=== PATIENT | female | born 1985 | race Two or more races ===

== ENCOUNTER 2017-08-09 10:20 | Emergency (ER) | payer OTHER ==
[2017-08-09] MEDS ORDERED: NS 0.9% 1000 ML* 1,000 ML IV ONE (11:03)
[2017-08-09 11:42] LABS: ABS Basophils 0 10^3/ul (0-0.2); ABS Eosinophils 0.9 10^3/ul (0-0.6); ABS Lymphocytes 1.5 10^3/ul (1.0-4.8); ABS Monocytes 0.3 10^3/ul (0-0.8); ABS Neutrophils 3.6 10^3/ul (1.5-7.7); ABS Nucleated RBC 0 10^3/ul; Eosinophil % 13.9 % (0-6); Hematocrit 38 % (35-47); Hemoglobin 12.8 g/dl (12.0-16.0); Mean Corpuscular HGB Conc 34 g/dl (31-36); Mean Corpuscular Hemoglobin 29 pg (27-31); Mean Corpuscular Volume 86 fL (80-97); Mean Platelet Volume 8.6 um3 (7.4-10.4); Nucleated Red Blood Cells % 0.1; Platelet Count 171 10^3/ul (150-450); Red Cell Distribution Width 13 % (10.5-15); White Blood Count 6.3 10^3/ul (3.5-10.8)
--- NOTE | 2017-08-09 12:07 | RAD ---
INDICATION: Cholecystitis COMPARISON: None TECHNIQUE: Longitudinal and transverse scans of the right upper quadrant were obtained. Doppler interrogation of the hepatic and portal venous system was performed. FINDINGS: Liver: The liver is normal in size and echogenicity. There are no focal masses. The liver measures 15 cm in cephalocaudal dimension. Vessels: There is normal hepatic and portal venous flow. Bile ducts: There is no evidence of intrahepatic or extrahepatic ductal dilatation. The common duct measures 0.2 cm. Gallbladder: The gallbladder is partially contracted. The patient ate less than 3 hours prior to imaging. There is no convincing evidence of cholelithiasis, thickening of the gallbladder wall, or pericholecystic fluid. Pancreas: The visualized pancreas appears normal Right kidney: The right kidney is normal in size and echogenicity. There are no masses or calculi. There is no evidence of hydronephrosis. The right kidney measures 10.8 x 3.6 x 4.0 cm. IVC and aorta: The aorta and superior vena cava appear normal. Fluid: There is no ascites. Other: None. IMPRESSION: PARTIALLY CONTRACTED GALLBLADDER, OTHERWISE NEGATIVE
[2017-08-09 12:09] LABS: EGFR Non-African American 88.8 (>60)
[2017-08-09 12:24] LABS: INR 1.02 (0.77-1.02)
[2017-08-09] MEDS ORDERED: Iohexol 300* (CONTRAST) 10 ML SDV IV ONE (12:27)
[2017-08-09 13:06] LABS: Urine Appearance Clear; Urine Blood Negative (Negative); Urine Color Colorless; Urine Ketones Negative (Negative); Urine Protein Negative (Negative); Urine Specific Gravity 1.003 (1.010-1.030); Urine Urobilinogen Negative (Negative)
--- NOTE | 2017-08-09 13:17 | RAD ---
HISTORY: Abdominal pain, epigastric pain COMPARISONS: None VIEWS: 4: Frontal dual-energy and lateral views of the chest. FINDINGS: CARDIOMEDIASTINAL SILHOUETTE: The cardiomediastinal silhouette is normal. VIKTORIA: The viktoria are normal. PLEURA: The costophrenic angles are sharp. No pleural abnormalities are noted. LUNG PARENCHYMA: The lungs are clear. ABDOMEN: The upper abdomen is clear. There is no subphrenic gas. BONES AND SOFT TISSUES: There is mild scoliotic curvature of the spine OTHER: None. IMPRESSION: NO ACTIVE CARDIOPULMONARY DISEASE.
[2017-08-09] MEDS ORDERED: Diltiazem IV* 5 MG/ML 5 ML VIAL (for loading dose/IV Push) (25 MG) ONE (14:48)
--- NOTE | 2017-08-09 14:57 | RAD ---
Indication: Abdominal tenderness. Contrast: Administered 84.0 ml of OMNIPAQUE 300 mg/ml CT of the abdomen and pelvis was performed after oral and IV contrast administration. Coronal and sagittal reconstructed images were obtained. The lung bases demonstrate no pleural fluid, nodules or masses. Heart is of normal size without evidence of pericardial effusion. Liver is normal in size. No focal lesions or intrahepatic ductal dilatation is noted. The spleen is normal in size. Pancreas demonstrates no mass or pancreatic ductal dilatation. The gallbladder demonstrates no calcified gallstones, pericholecystic fluid or wall thickening. It is partially contracted. The common duct is not dilated. No adrenal lesions are noted. The kidneys demonstrate symmetric nephrograms without focal lesions. No retroperitoneal lymphadenopathy is noted. CT of the pelvis demonstrates appendix to be visualized and appears to be air-filled. Small bowel demonstrates no abnormal dilatation. Urinary bladder is unremarkable. Collapsing right ovarian cyst may represent hemorrhagic cyst. There may be trace amount of free fluid in the cul-de-sac. No hernia is noted. No other dilated loops of bowel are noted. IMPRESSION: Normal appendix. No obstructive uropathy is noted. There is likely hemorrhagic cyst in the right ovary with a small amount of free fluid in the cul-de-sac.
[2017-08-09 15:43] VITALS: BP 95/50
--- NOTE | 2017-08-09 18:52 | ED ---
Malina Hanks Julia, scribed for Domingo Monsivais on 08/09/17 at 1106 . Abdominal Pain/Female - HPI Summary HPI Summary: This patient is a 31 year old F presenting to [facility] accompanied by male loom blower with a chief complaint of left sided abdominal pain and mid back pain for the past week. Rates pain as moderate. She additionally reports bright red blood per rectum. She denies diarrhea. Reports a hx of constipation. - History of Current Complaint Chief Complaint: EDAbdPain Stated Complaint: ABD PAIN Time Seen by Provider: 08/09/17 10:56 Hx Obtained From: Patient Onset/Duration: Lasting Weeks Timing: Constant Severity Currently: Moderate Pain Intensity: 6 Pain Scale Used: 0-10 Numeric Location: Other - left Alleviating Factor(s): Nothing Associated Signs and Symptoms: Positive: Back Pain, Constipation, Blood in Stool Allergies/Adverse Reactions: Allergies Allergy/AdvReac Type Severity Reaction Status Date / Time No Known Allergies Allergy Verified 08/09/17 10:53 Home Medications: Home Medications Docusate CAP* [Colace Cap*] 100 mg PO DAILY PRN 08/09/17 [History Confirmed ] PMH/Surg Hx/FS Hx/Imm Hx GI History: Reports: Other GI Disorders - constipation EENT History: Denies: Hx Deafness Infectious Disease History: No Infectious Disease History: Denies: Traveled Outside the [place] in Last 30 Days - Family History Known Family History: Positive: Hypertension - Social History Alcohol Use: None Substance Use Type: Reports: None Smoking Status (MU): Never Smoked Tobacco Review of Systems Negative: Fever Gastrointestinal: Other - rectal bleeding Positive: Abdominal Pain. Negative: Diarrhea All Other Systems Reviewed And Are Negative: Yes Physical Exam - Summary Physical Exam Summary: Appearance: Well appearing, no pain distress Skin: warm, dry, reflects adequate perfusion Head/face: normal Eyes: EOMI, ROMÁN ENT: normal Neck: supple, non-tender Respiratory: CTA, breath sounds present Cardiovascular: RRR, pulses symmetrical Abdomen: diffuse tenderness, soft Bowel: present Musculoskeletal: normal, strength/ROM intact Neuro: normal, sensory motor intact, A&Ox3 Triage Information Reviewed: Yes Vital Signs On Initial Exam: Initial Vitals Temp Pulse Resp BP Pulse Ox 98.7 F 97 17 124/70 100 08/09/17 10:46 08/09/17 10:46 08/09/17 10:46 08/09/17 10:46 08/09/17 10:46 Vital Signs Reviewed: Yes Diagnostics - Vital Signs Vital Signs Temp Pulse Resp BP Pulse Ox 08/09/17 10:46 98.7 F 97 17 124/70 100 - Laboratory Lab Results: Lab Results 08/09/17 08/09/17 08/09/17 Range/Units 11:28 11:28 11:28 WBC 6.3 (3.5-10.8) 10^3/ul RBC 4.40 (4.0-5.4) 10^6/ul Hgb 12.8 (12.0-16.0) g/dl Hct 38 (35-47) % MCV 86 (80-97) fL MCH 29 (27-31) pg MCHC 34 (31-36) g/dl RDW 13 (10.5-15) % Plt Count 171 (150-450) 10^3/ul MPV 8.6 (7.4-10.4) um3 Neut % (Auto) 56.7 (38-83) % Lymph % (Auto) 24.0 L (25-47) % Moore % (Auto) 5.0 (0-7) % Eos % (Auto) 13.9 H (0-6) % Baso % (Auto) 0.4 (0-2) % Absolute Neuts (auto) 3.6 (1.5-7.7) 10^3/ul Absolute Lymphs (auto) 1.5 (1.0-4.8) 10^3/ul Absolute Monos (auto) 0.3 (0-0.8) 10^3/ul Absolute Eos (auto) 0.9 H (0-0.6) 10^3/ul Absolute Basos (auto) 0 (0-0.2) 10^3/ul Absolute Nucleated RBC 0 10^3/ul Nucleated RBC % 0.1 INR (Anticoag Therapy) (0.77-1.02) APTT (26.0-36.3) seconds Sodium 139 (139-145) mmol/L Potassium 4.2 (3.5-5.0) mmol/L Chloride 108 (101-111) mmol/L Carbon Dioxide 26 (22-32) mmol/L Anion Gap 5 (2-11) mmol/L BUN 10 (6-24) mg/dL Creatinine 0.76 (0.51-0.95) mg/dL Est GFR ( Amer) 114.2 (>60) Est GFR (Non-Af Amer) 88.8 (>60) BUN/Creatinine Ratio 13.2 (8-20) Glucose 120 H (70-100) mg/dL Lactic Acid 1.1 (0.5-2.0) mmol/L Calcium 9.3 (8.6-10.3) mg/dL Total Bilirubin 0.40 (0.2-1.0) mg/dL AST 14 (13-39) U/L ALT 11 (7-52) U/L Alkaline Phosphatase 58 (34-104) U/L Troponin I 0.00 (<0.04) ng/mL Total Protein 6.7 (6.4-8.9) g/dL Albumin 4.1 (3.2-5.2) g/dL Globulin 2.6 (2-4) g/dL Albumin/Globulin Ratio 1.6 (1-3) Lipase 30 (11.0-82.0) U/L Beta HCG, Quant < 0.60 mIU/mL Urine Color Urine Appearance Urine pH (5-9) Ur Specific [place] (1.010-1.030) Urine Protein (Negative) Urine Ketones (Negative) Urine Blood (Negative) Urine Nitrate (Negative) Urine Bilirubin (Negative) Urine Urobilinogen (Negative) Ur Leukocyte Esterase (Negative) Urine Glucose (Negative) 08/09/17 08/09/17 Range/Units 12:00 12:39 WBC (3.5-10.8) 10^3/ul RBC (4.0-5.4) 10^6/ul Hgb (12.0-16.0) g/dl Hct (35-47) % MCV (80-97) fL MCH (27-31) pg MCHC (31-36) g/dl RDW (10.5-15) % Plt Count (150-450) 10^3/ul MPV (7.4-10.4) um3 Neut % (Auto) (38-83) % Lymph % (Auto) (25-47) % Moore % (Auto) (0-7) % Eos % (Auto) (0-6) % Baso % (Auto) (0-2) % Absolute Neuts (auto) (1.5-7.7) 10^3/ul Absolute Lymphs (auto) (1.0-4.8) 10^3/ul Absolute Monos (auto) (0-0.8) 10^3/ul Absolute Eos (auto) (0-0.6) 10^3/ul Absolute Basos (auto) (0-0.2) 10^3/ul Absolute Nucleated RBC 10^3/ul Nucleated RBC % INR (Anticoag Therapy) 1.02 (0.77-1.02) APTT 34.7 (26.0-36.3) seconds Sodium (139-145) mmol/L Potassium (3.5-5.0) mmol/L Chloride (101-111) mmol/L Carbon Dioxide (22-32) mmol/L Anion Gap (2-11) mmol/L BUN (6-24) mg/dL Creatinine (0.51-0.95) mg/dL Est GFR ( Amer) (>60) Est GFR (Non-Af Amer) (>60) BUN/Creatinine Ratio (8-20) Glucose (70-100) mg/dL Lactic Acid (0.5-2.0) mmol/L Calcium (8.6-10.3) mg/dL Total Bilirubin (0.2-1.0) mg/dL AST (13-39) U/L ALT (7-52) U/L Alkaline Phosphatase (34-104) U/L Troponin I (<0.04) ng/mL Total Protein (6.4-8.9) g/dL Albumin (3.2-5.2) g/dL Globulin (2-4) g/dL Albumin/Globulin Ratio (1-3) Lipase (11.0-82.0) U/L Beta HCG, Quant mIU/mL Urine Color Colorless Urine Appearance Clear Urine pH 8.0 (5-9) Ur Specific [place] 1.003 L (1.010-1.030) Urine Protein Negative (Negative) Urine Ketones Negative (Negative) Urine Blood Negative (Negative) Urine Nitrate Negative (Negative) Urine Bilirubin Negative (Negative) Urine Urobilinogen Negative (Negative) Ur Leukocyte Esterase Negative (Negative) Urine Glucose Negative (Negative) Result Diagrams: 08/09/17 11:28 08/09/17 11:28 Lab Statement: Any lab studies that have been ordered have been reviewed, and results considered in the medical decision making process. - Radiology CXR Radiology Interpretation Completed By: Radiologist - NO ACTIVE CARDIOPULMONARY DISEASE. ED Physician has reviewed this report. - CT A/P CT CT Interpretation Completed By: Radiologist - Normal appendix. No obstructive uropathy is noted. There is likely hemorrhagic cyst in the right ovary with a small amount of free fluid in the cul-de-sac. ED Physician has reviewed this report. - EKG 12:05 Cardiac Rate: NL EKG Rhythm: Sinus Rhythm - 69 BPM EKG Interpretation: no acute changes - Additional Comments Diagnostic Additional Comments: A Gallbladder US reveals, as per radiologist: PARTIALLY CONTRACTED GALLBLADDER, OTHERWISE NEGATIVE. ED Physician has reviewed this report. Abdominal Pain Fem Course/Dx - Course Course Of Treatment: 31 year old F [facility] accompanied by male loom blower with a chief complaint of left sided abdominal pain and mid back pain for the past week. Rports hx of constipation. An EKG, CXR, A/P CT, and Gallbladder US reveal no acute findings. Bloodwork and UA is unremarkable. Patient is given IV fluids and Diltiazem. Patient is informed of results and is discharged with a prescription for Protonix. - Diagnoses Differential Diagnosis: Positive: Appendicitis, Diverticulitis, Pancreatitis, , Renal Colic Provider Diagnoses: Nonspecific abdominal pain Discharge - Sign-Out/Discharge Documenting (check all that apply): Discharge/Admit/Transfer - Discharge Plan Condition: Stable Disposition: HOME Prescriptions: Pantoprazole TAB (NF) [Protonix TAB (NF)] 40 mg PO DAILY #30 tab Patient Education Materials: Acute Abdominal Pain (ED) Referrals: [facility] PHYSICIAN REFERRAL [Outside] - 3 Days (Contact the Physician referral center to set up a primary care physician. ) - Billing Disposition and Condition Condition: STABLE Disposition: HOME The documentation as recorded by the Malina farooq Julia accurately reflects the service I personally performed and the decisions made by Loi echavarria Emmanuel.
== END 2017-08-09 15:46 | disposition home or self-care (01) ==
LOC: ED 10:20
DX: R10.84 Generalized abdominal pain (principal); M54.9 Dorsalgia, unspecified; K62.5 Hemorrhage of anus and rectum; K59.00 Constipation, unspecified; K82.8 Other specified diseases of gallbladder
CPT/HCPCS: 36415; 71046; 74177; 76705; 80053; 81003; 83605; 83690; 84484; 84702; 85025; 85610; 85730; 93005; 96360; 96361; 99283; Q9967

== ENCOUNTER 2017-08-18 01:33 | Emergency (ER) | payer OTHER ==
[2017-08-18] MEDS ORDERED: NS 0.9% 1000 ML* 1,000 ML IV ONE (02:03)
[2017-08-18] MEDS ORDERED: Pantoprazole IV* 40 MG IV ONE (02:03)
[2017-08-18] MEDS ORDERED: Ketorolac INJ* 30 MG/ML 1 ML VIAL IV ONE (02:03)
[2017-08-18] MEDS ORDERED: Metoclopramide IV* 5 MG/ML 2 ML VIAL IV ONE (02:03)
[2017-08-18 02:27] LABS: ABS Basophils 0.1 10^3/ul (0-0.2); ABS Eosinophils 0.4 10^3/ul (0-0.6); ABS Lymphocytes 1.7 10^3/ul (1.0-4.8); ABS Monocytes 0.4 10^3/ul (0-0.8); ABS Neutrophils 4.9 10^3/ul (1.5-7.7); ABS Nucleated RBC 0 10^3/ul; Eosinophil % 5.7 % (0-6); Hematocrit 35 % (35-47); Lymphocyte % 22.6 % (25-47); Mean Corpuscular HGB Conc 34 g/dl (31-36); Mean Corpuscular Hemoglobin 29 pg (27-31); Mean Corpuscular Volume 86 fL (80-97); Mean Platelet Volume 8.5 um3 (7.4-10.4); Nucleated Red Blood Cells % 0.1; Platelet Count 166 10^3/ul (150-450); Red Blood Count 4.09 10^6/ul (4.0-5.4); Red Cell Distribution Width 13 % (10.5-15); White Blood Count 7.4 10^3/ul (3.5-10.8)
[2017-08-18 02:44] LABS: EGFR Non-African American 79.1 (>60)
[2017-08-18 03:25] VITALS: BP 119/63
--- NOTE | 2017-08-18 03:29 | ED ---
Ivan Hanks Angela, scribed for Nemo Joyner MD on 08/18/17 at 0206 . Abdominal Pain/Female - HPI Summary HPI Summary: This pt is a 31 y/o female [facility] c/o abdominal pain since 21:00 last night. Pt additionally reports nausea, vomiting, diarrhea. Pt states she also has pain in the mid back. She denies fever, chills. Pt denies any past abdominal surgeries. PMHx significant for constipation. - History of Current Complaint Chief Complaint: EDAbdPain Stated Complaint: ABD PAIN Time Seen by Provider: 08/18/17 01:59 Hx Obtained From: Patient Onset/Duration: Lasting Hours, Still Present Timing: Hours Severity Currently: Moderate Pain Intensity: 6 Pain Scale Used: 0-10 Numeric Location: Diffuse Radiates: No Aggravating Factor(s): Nothing Alleviating Factor(s): Nothing Associated Signs and Symptoms: Positive: Back Pain, Nausea, Vomiting, Diarrhea. Negative: Fever Allergies/Adverse Reactions: Allergies Allergy/AdvReac Type Severity Reaction Status Date / Time No Known Allergies Allergy Verified 08/09/17 10:53 PMH/Surg Hx/FS Hx/Imm Hx Endocrine/Hematology History: Denies: Hx Diabetes Cardiovascular History: Denies: Hx Hypertension GI History: Reports: Other GI Disorders - constipation Sensory History: Denies: Hx Deafness Infectious Disease History: No Infectious Disease History: Reports: Traveled Outside the [place] in Last 30 Days - Family History Known Family History: Positive: Hypertension - Social History Alcohol Use: None Substance Use Type: Reports: None Smoking Status (MU): Never Smoked Tobacco Review of Systems Negative: Fever, Chills Eyes: Negative ENT: Negative Positive: Abdominal Pain, Vomiting, Diarrhea, Nausea Skin: Negative Neurological: Negative All Other Systems Reviewed And Are Negative: Yes Physical Exam - Summary Physical Exam Summary: VITAL SIGNS: Reviewed. GENERAL: Patient is a well-developed and nourished female who is lying comfortable in the stretcher. Patient is not in any acute respiratory distress. HEAD AND FACE: No signs of trauma. No ecchymosis, hematomas or skull depressions. No sinus tenderness. EYES: PERRLA, EOMI x 2, No injected conjunctiva, no nystagmus. EARS: Hearing grossly intact. Ear canals and tympanic membranes are within normal limits. MOUTH: Oropharynx within normal limits. NECK: Supple, trachea is midline, no adenopathy, no JVD, no carotid bruit, no c- spine tenderness, neck with full ROM. CHEST: Symmetric, no tenderness at palpation LUNGS: Clear to auscultation bilaterally. No wheezing or crackles. CVS: Regular rate and rhythm, S1 and S2 present, no murmurs or gallops appreciated. ABDOMEN: Soft, non-tender. No signs of distention. No rebound no guarding, and no masses palpated. Bowel sounds are normal. EXTREMITIES: FROM in all major joints, no edema, no cyanosis or clubbing. NEURO: Alert and oriented x 3. No acute neurological deficits. Speech is normal and follows commands. SKIN: Dry and warm Triage Information Reviewed: Yes Vital Signs On Initial Exam: Initial Vitals Temp Pulse Resp BP Pulse Ox 98.2 F 80 20 120/60 100 08/18/17 01:36 08/18/17 01:36 08/18/17 01:36 08/18/17 01:36 08/18/17 01:36 Vital Signs Reviewed: Yes Diagnostics - Vital Signs Vital Signs Temp Pulse Resp BP Pulse Ox 08/18/17 01:36 98.2 F 80 20 120/60 100 - Laboratory Result Diagrams: 08/18/17 02:17 08/18/17 02:17 Lab Statement: Any lab studies that have been ordered have been reviewed, and results considered in the medical decision making process. Re-Evaluation - Re-Evaluation First Eval Re-Evaluation Time: 02:58 Change: Improved Comment: Pt is feeling better. She will be discharged home. Abdominal Pain Fem Course/Dx - Course Course Of Treatment: Pt is a 31 y/o female who presents with abdominal pain since 21:00 last night. Pt additionally reports nausea, vomiting, diarrhea. Pt states she also has pain in the mid back. She denies fever, chills. Pt denies any past abdominal surgeries. Test results without any significant abnormalities. In the ED course the pt was given IV fluids, Toradol, Reglan, and Protonix. After these medications pt is feeling better. Therefore pt will be discharged home with follow up from her PCP. She is instructed to return to the ED for any worsening symptoms. - Diagnoses Provider Diagnoses: Gastroenteritis Discharge - Sign-Out/Discharge Documenting (check all that apply): Discharge/Admit/Transfer - Discharge - Discharge Plan Condition: Stable Disposition: HOME Patient Education Materials: Gastroenteritis (ED) Referrals: [facility] PHYSICIAN REFERRAL [Outside] Additional Instructions: Please establish a primary care provider and follow up. RETURN TO EMERGENCY DEPARTMENT FOR ANY NEW OR WORSENING SYMPTOMS. The documentation as recorded by the Ivan farooq Angela accurately reflects the service I personally performed and the decisions made by Ar echavarria Abdul, MD.
== END 2017-08-18 03:23 | disposition home or self-care (01) ==
LOC: ED 01:33
DX: K52.9 Noninfective gastroenteritis and colitis, unspecified (principal)
CPT/HCPCS: 36415; 80053; 83690; 83735; 84702; 85025; 86140; 96374; 96375; 99284; J1885; J2765

== ENCOUNTER 2019-06-10 07:57 | Inpatient (IN) | payer MEDICAID, OTHER ==
[2019-06-10] MEDS ORDERED: Penicillin G Potassium IV* 5,000,000 UNITS in NS 0.9% 100 ML* 100 ML IVPB ONE (08:38)
[2019-06-10] MEDS ORDERED: Dinoprostone* 10 MG VAG.SUPP VAGINAL ONE (08:42)
--- NOTE | 2019-06-10 09:33 | HP ---
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 Denies any outbreaks during Pertinent Past Surgical History: None Pertinent Family History: See Records Family History Comment: Father: , colon cancer PGM: , MVA MGM: , esophageal cancer - Antepartal Records Antepartal Records: Reviewed, Complicated by: - GBS bacteriuria Review of Systems Constitutional: Comfortable CV Complaint: No Respiratory: Shortness of Breath: No Gastrointestinal: No Nausea/Vomiting, Normal Bowel Movement Genitourinary: No Dysuria, No Bleeding, No Leaking Fluid Musculoskeletal: No Complaint, No Epigastric Pain Neurological: No Headache, No Visual Changes Movement: Normal Exam Allergies/Adverse Reactions: Allergies No Known Allergies Allergy (Verified 06/10/19 08:35) BP 119/51 HR 77 RR 16 T 97.7 SpO2 100% on RA - Measurements Height: 5 ft 2.25 in Weight: 168 lb Weight in lbs: [id number] Body Mass Index (BMI): 30.4 Pre- Weight: 147 lb Weight Gained This : 21 lbs and 0 ozs - Exam Breast: Breast Exam Deferred CVA: No CVA Tenderness Extremities: No Edema Heart: Normal Rhythm/Heart Sounds HEENT: No Significant Findings Lungs: Clear Bilaterally Rectal: Rectal Exam Deferred Reflexes: DTR 2+ Thyroid: No Thyromegaly - Abdominal Exam Abdomen Exam: Non-Tender, Fundal Height Consistent with Dates Targeted Exam Findings See L&D Outpatient Visit Provider Note for Findings: N/A Estimated Weight: EFW 7.5-8lbs by Sonny Cervical Exam: Closed Effacement: Thick Station: -1 Presenting Part: Vertex Membrane Status: Intact Sterile Speculum Exam: Not done Bleeding/Discharge: None EFM Findings - External Monitor Findings Baseline Heart Rate: 135 External Monitor Findings: Accelerations Present, No Pattern of Variable or Late Decelerations, Variability Moderate, Baseline Stable External Monitor Findings Comment: No evidence of metabolic acidemia Contractions: Irregular, Mild Contraction Frequency: q 6-8 min Assessment/Plan - Assessment IUP at 41 weeks here for postdates ripening Bishops Score: 4, unfavorable for induction No evidence of metabolic acidemia - Obstetrical Risk Factors Obstetrical Risk Factors: GBS Positive, Post-Dates - Plan Plan: Cervical Ripening, Admit - Anticipate Vaginal Delivery Plan Comment: PARQ Cervidil. Pt and FOB agree. Monitor per protocol. Remove in 12-16 hours, sooner PRN onset active labor, intolerance, or tachysystole - Date/Time of Admission Date of Admission: 06/10/19 Time of Admission: 08:32
[2019-06-10 14:37] LABS: Urine Benzodiazepine Screen None Detected (None Detect); Urine Opiates Screen None Detected (None Detect)
--- NOTE | 2019-06-10 15:37 | PTEDU ---
Patient Name: RANDOLPH SANCHEZ RANDOLPH SANCHEZ selected video: Never Ever Shake a Baby to view on 06/10/2019 at 3:36 :39 PM from [id number]
--- NOTE | 2019-06-10 22:18 | PN ---
Progress Note - Progress Note Date of Service: 06/10/19 Note: S: Pt resting comfortably in bed. Denies feeling any strong UCs. Describes active FM. Wondering what the next step is O: BP 115/70 HR 76 RR 17 T 97.8 FHT 135bpm. Moderate variability. +Accels. No decels UCs q 2-5, mild to palpation VE deferred A: IUP at 41 weeks here for postdates ripening/induction No evidence of metabolic acidemia P: Given that pt just beginning to have UCs and Cat I FHT will continue Cervidil until 0138 (16 hours post placement). Pt and FOB agree. Enc rest.
[2019-06-11] MEDS ORDERED: diPHENhydraMINE PO* 50 MG PO PRN (01:42)
--- NOTE | 2019-06-11 01:42 | PN ---
Progress Note - Progress Note Date of Service: 06/11/19 Note: S: Pt reports increased pain and pressure in the last 30 minutes. Wincing and breathing with UCs O: BP 115/70 HR 76 T 98.3 RR 16 FHT 140bpm. Moderate variability. +Accels. No decels UCs q 1.5-4 min, palpate mild VE: Cervidil removed 1cm/50%/vtx -1 A: IUP at 41-1/7 s/p cervidil x 1 for postdates ripening/induction No evidence of metabolic acidemia P: Will continue to monitor UCs at this time. Discussed trial of medication to aid with sleep such as Benadryl. Pt hoping to avoid medicine but will consider. PRN order input. Enc rest. If increasing discomfort or inability to sleep could try warm tub or shower. Re-eval in AM or sooner PRN
--- NOTE | 2019-06-11 07:22 | PN ---
Progress Note - Progress Note Date of Service: 06/11/19 Note: S: Pt was able to rest some overnight without Benadryl. Reports in the last hour UCs feel stronger and closer together. O: BP 100/59 HR 75 T 98.4 RR 18 FHT 125bpm. Moderate variability. +Accels. No decels. UCs q 1-3 VE unchanged since 0130: 1/50%/vtx -1 A: IUP at 41-1/7 in latent labor No evidence of metabolic acidemia P: Pt will eat breakfast, take a shower, and agrees to IV Placement. If UC pattern continues will likely trial IV pitocin. Report to Liliane Roque CNM who will assume care at 0800
[2019-06-11] MEDS: Lactated Ringers 1000 ML Bag* 1,000 ML IV ONE ×2 (08:17→08:25)
[2019-06-11 08:38] LABS: ABS Eosinophils 0.1 10^3/ul (0-0.6); ABS Lymphocytes 1.8 10^3/ul (1.0-4.8); ABS Monocytes 0.4 10^3/ul (0-0.8); Hematocrit 31 % (35-47); Hemoglobin 10.5 g/dL (12.0-16.0); Lymphocyte % 28.6 %; Mean Corpuscular HGB Conc 34 g/dL (31-36); Mean Corpuscular Hemoglobin 28 pg (27-31); Mean Corpuscular Volume 82 fL (80-97); Mean Platelet Volume 10.1 fL (7.4-10.4); Nucleated Red Blood Cells % 0.1; Platelet Count 147 10^3/uL (150-450); Red Cell Distribution Width 15 % (10-15); White Blood Count 6.3 10^3/uL (3.5-10.8)
--- NOTE | 2019-06-11 10:22 | PN ---
Progress Note - Progress Note Date of Service: 06/11/19 Note: S: Patient reports she slept "a few hours" and contractions this morning are mild. She declined translation via iPad and states that her can translate for her. O: VE 1cm/60/-1 UCs q 1-4 min, some coupling FHT 135, +accels, no decels, mod lito VSS, afebrile A: IUP 41+1 week gestation for induction of labor No evidence acidemia GBS bacteriuria Membranes intact P: PARQ discussion of Cook's catheter for ripening and considering pitocin given contraction pattern. Patient in agreement.
--- NOTE | 2019-06-11 13:49 | PN ---
Progress Note - Progress Note Date of Service: 06/11/19 Note: S: Patient doing well with Cook's balloon, has been filled to 60/60ml. She was on ball and then bed. Reports she sleep a little bit. O: VE deferred FHT 130, +accels, no decels, mod lito UCs q 5-8 min VSS A: IUP @ 41+1 weeks gestation for induction GBS+ No evidence acidemia P: Discussion of pitocin for augmentation; patients in agreement. Will initiate low dose pitocin and increase saline in Cook's balloons to max if tolerated. Initiate GBS prophylaxis with active labor pattern.
[2019-06-11] MEDS ORDERED: Oxytocin in LR* 20 UNITS/1,000 ML BAG IVPB SCH (14:00)
--- NOTE | 2019-06-11 20:30 | PN ---
Progress Note - Progress Note Date of Service: 06/11/19 Note: S: Coping well though getting tired. Contractions getting stronger. O: VE deferred FHT 135, + accels, no decels, mod lito Pit @ 13 VSS, afebrile UCs q 2-4 A: IUP @ 41+1 weeks gestation for induction of labor No evidence acidemia Intact membranes P: Plan to remove balloon catheter @ 12 hour adalberto and assess cervical change. Then to decide between continued pitocin vs a rest for some sleep overnight.
--- NOTE | 2019-06-11 22:28 | PN ---
Progress Note - Progress Note Date of Service: 06/11/19 Note: S: Patient in significantly more pain with contractions O: VE by RN 4cm/80/-1 Spontaneous rupture of membranes to clear fluid, Cook's removed FHT 140, minimal lito, +accels, no decels Pit @ 14 UCs q 1-3 min A: IUP @ 41+1 in early labor Doubt acidemia P: Plan to turn off pitocin and patient will get in tub for a time to get a break. May opt for return to pitocin vs rest vs therapeutic rest after tub.
[2019-06-11] MEDS ORDERED: Promethazine INJ(RESTRICTED)* 25 MG/ML 1 ML VIAL IV PRN (22:33)
[2019-06-11] MEDS ORDERED: Morphine INJ* 4 MG/ML 1 ML SYRINGE (NEW SYRINGE VERSION) IV PRN (22:33)
[2019-06-12] MEDS ORDERED: OBEPIDURAL* 250 ML EPIDURAL ONE (00:56)
[2019-06-12] MEDS ORDERED: Lactated Ringers 1000 ML Bag* 1,000 ML IV ONE (01:59)
[2019-06-12] MEDS ORDERED: Phenylephrine 40 MCG/ML SYRINGE IV PUSH PRN ×2 (01:59)
[2019-06-12] MEDS ORDERED: Lactated Ringers 1000 ML Bag* 500 ML IV PRN ×2 (01:59)
[2019-06-12] MEDS ORDERED: Famotidine TAB* 20 MG PO PRN (01:59)
[2019-06-12] MEDS ORDERED: Sodium Citrate/Citric Acid* 15 ML UDC PO PRN (01:59)
[2019-06-12] MEDS ORDERED: Lactated Ringers 1000 ML Bag* 1,000 ML IV SCH ×2 (02:00)
[2019-06-12] MEDS: Penicillin G Potassium IV* 3,000,000 UNITS in NS 0.9% 100 ML* 100 ML IVPB SCH ×5 (03:46→20:05)
--- NOTE | 2019-06-12 08:39 | PN ---
Progress Note - Progress Note Date of Service: 06/12/19 SOAP: Subjective: Pt comfortable with epidural. at bedside. Objective: FHR: Baseline 140/ moderate variability/ no accels/ was having some late decels which seem to have resolved with position change UCs: 2-3 minutes Pitocin at 14 mu/ min Cervical exam deferred Temp: 98.7 BP: 117/75 Assessment: No evidence of acidemia or chorioamnionitis. Comfortable with epidural. Plan: Will check cervix in 1-2 hours or when pt feeling more pressure. Continue Pitocin. Continue GBS prophylaxis. Anticipate .
--- NOTE | 2019-06-12 11:29 | PN ---
Progress Note - Progress Note Date of Service: 06/12/19 SOAP: Subjective: Pt more uncomfortable with ctx. Encouraged use of bolus button. at bedside. Objective: Cervix: 6cm/ -1/ 100%/ vtx with molding noted but no caput FHR: Baseline 145/ moderate variability/ no accels/ no decels UCs: Q 2 minutes/ MVUs 190 Pitocin at 16 mu/ min Temp: 99.1 Fluid clear Assessment: Pt has not made cervical change in a number of hours. Last exam by RN at 0639 was 8cm, so likely no change for at least 4 hours. No evidence of acidemia or chorioamnionitis. Plan: IUPC placed. Will titrate Pitocin accordingly. Recommend position frequent position changes to encourage descent and optimal positioning. Recheck in 2 hours.
--- NOTE | 2019-06-12 13:13 | PN ---
Progress Note - Progress Note Date of Service: 06/12/19 SOAP: Subjective: Pt was very uncomfortable with ctx, despite epidural. Using bolus button occasionally. Objective: Cervix: 6 cm/ 100%/ 0 station, head better applied, still molding but no caput UCs: were every 2 minutes prior to reducing Pitocin, now 2-3, 155 MVUs FHR:Baseline 155 w/minimal variability and recurrent late decels, following position change and reduction of Pitocin now moderate variability and no decels Temp: 99.3 Assessment: Baby feels better positioned in the pelvis, but no change in dilation yet. FHR tracing Category II but improves to Category I with position changes and reduction of Pitocin. Plan: Pitocin reduced by half, will begin to increase again as tolerated according to FHR. Anesthesiologist Dr. Chery called to bolus epidural. Will recheck cervix in an hour or two or as needed.
--- NOTE | 2019-06-12 15:49 | PN ---
Progress Note - Progress Note Date of Service: 06/12/19 SOAP: Subjective: Pt remains comfortable with epidural. at bedside. Objective: Cervix: 7cm/ 0 station/ 100%/ vtx FHR: Baseline 140/ moderate variability/ + accels/ no decels UCs: 2-3 minutes, MVUs 180 BP: 109/56 Temp: 99.3 Assessment: Pt made some cervical change. No evidence of acidemia or chorioamnionitis. Plan: Continue Pitocin. Continue GBS prophylaxis. Continue position changes. Recheck cervix in 2 hours.
--- NOTE | 2019-06-12 17:41 | PN ---
Progress Note - Progress Note Date of Service: 06/12/19 SOAP: Subjective: Pt remains fairly comfortable with epidural. Objective: Cervix: 9cm/ 100%/0 station FHR: Baseline 150/ minimal variability/ no accels/ no decels UCs: 2-3 min apart BP: 104/49 Temp: 98.6 Fluid clear Assessment: Pt with good change. FHR tracing Category II. Plan: Will continue to labor. Position changes, IVF bolus, and decrease Pitocin if necessary to try to improve FHR tracing. Recheck cervix in 2 hours or as needed. Continue GBS prophylaxis.
[2019-06-12] MEDS ORDERED: ceFOXitin 2 GM IVPREMIX* 2 GM/50 ML BAG IVPB ONE (21:40)
[2019-06-12] MEDS ORDERED: ceFOXitin 2 GM IVPREMIX* 2 GM/50 ML BAG ONE (21:42)
--- NOTE | 2019-06-12 21:51 | PN ---
Progress Note - Progress Note Date of Service: 06/12/19 Note: Pt admitted about 50+ hours ago for induction at 41 weeks EGA. Pt initially had cervical ripening, followed by pitocin. AROM was about 24 hrs ago. She received an epidural at about 0130 last night. During the day today, she progressed from about 6cm to 9cm over about 9 hours, and there has been minimal change for about 4 hours. Pt offered to continue labor vs discontinue and have . Pt is from [place], seems to understand [place] quite well. also present. Both declined translation service. After discussion, pt and have decided to proceed with a delivery. We discussed the surgery as well as the risks including bleeding, hemorrhage, infection, organ injury, and transfusion. All questions answered, consent signed.
[2019-06-12] MEDS ORDERED: fentaNYL* 50 MCG/ML 2 ML VIAL (100 MCG VIAL) ONE (22:06)
[2019-06-12] MEDS ORDERED: Chloroprocaine 3%* 20 ML VIAL ONE (22:07)
[2019-06-12] MEDS ORDERED: HYDROcodone/ACETAMIN 5-325 MG* 1 TAB PO PRN (22:16)
[2019-06-12] MEDS ORDERED: fentaNYL* 50 MCG/ML 2 ML VIAL (100 MCG VIAL) IV PRN (22:16)
[2019-06-12] MEDS ORDERED: oxyCODONE/Acetamin 5/325 MG* TAB PO PRN (22:16)
[2019-06-12] MEDS ORDERED: Acetaminophen IV 1GM/100ML * 1,000 MG/100 ML VIAL IVPB ONE (22:16)
[2019-06-12] MEDS ORDERED: Naloxone* 0.4 MG/ML 1 ML VIAL IV PRN ×2 (22:16→23:43)
[2019-06-12] MEDS ORDERED: DiMENhydriNATE IV* 50 MG/ML VIAL IV PUSH PRN (22:16)
[2019-06-12] MEDS ORDERED: Phenylephrine 10 MG/ML VIAL* 1 ML VIAL ONE (22:33)
[2019-06-12] MEDS ORDERED: Ondansetron INJ* 2 MG/ML VIAL ONE (22:41)
[2019-06-12] MEDS ORDERED: Dexamethasone IV* 4 MG/ML 1 ML (4 MG) ONE (22:41)
[2019-06-12] MEDS ORDERED: OXYTOCIN* 10 UNITS/ML 1 ML VIAL ONE (22:41)
[2019-06-12] MEDS ORDERED: Morphine PF AMP (0.5MG/ML)* 5 MG/10 ML AMP ONE (23:06)
[2019-06-12] MEDS ORDERED: PROCHLORPERAZINE INJ 5 MG/ML 2 ML VIAL IV PRN (23:43)
[2019-06-12] MEDS ORDERED: Ondansetron INJ* 2 MG/ML VIAL IV PRN (23:43)
[2019-06-12] MEDS ORDERED: Nalbuphine* 10 MG/ML 1 ML VIAL IV PRN (23:43)
[2019-06-12] MEDS ORDERED: oxyCODONE TAB* 5 MG TAB PO PRN (23:43)
[2019-06-12] MEDS ORDERED: Ketorolac INJ* 30 MG/ML 1 ML VIAL ONE (23:47)
[2019-06-13] MEDS: Ketorolac INJ* 30 MG/ML 1 ML VIAL IV SCH ×3 (00:20→14:16)
[2019-06-13] MEDS ORDERED: Witch Hazel PAD* JAR TOPICAL PRN (00:21)
[2019-06-13] MEDS ORDERED: Lactated Ringers 1000 ML Bag* 1,000 ML IV SCH (01:00)
--- NOTE | 2019-06-13 01:47 | OP ---
DATE OF OPERATION: Surgery was started on 06/12/19 - ROOM #104 DATE OF : 85 SURGEON: Keyonna Estrada MD APPLICATION SYSTEMS ADMINISTRATOR: Enriqueta Archibald CNM ANESTHESIOLOGIST: Dr. Dhiraj Roth. ANESTHESIA: Epidural. PRE-OP DIAGNOSIS: 41 weeks gestation with arrest of dilation. POST-OP DIAGNOSIS: 41 weeks gestation with arrest of dilation. OPERATIVE PROCEDURE: Primary low transverse section. ESTIMATED BLOOD LOSS: 800 cc. URINE OUTPUT: 120 cc. IV FLUIDS: 2500 cc lactated Ringer's. MATERIALS TO LAB: Cord blood. INDICATIONS: This patient is a 33-year-old 1, para 0, who was admitted 2 days ago for induction of labor at 41 weeks gestation. The patient started with cervical ripening and proceeded to Pitocin. She received an epidural about 20 hours earlier. The patient had slow change from about 6 cm to 9 cm throughout the day and had no significant cervical change from 9 cm after several hours. Considering this, the patient was counseled regarding our options, and she desired to proceed with the section at that point. She was extensively counseled and consent was signed. FINDINGS: Normal appearing fallopian tubes and ovaries. Uterus appeared somewhat pale and edematous. Delivery was productive of a male weighing 7 pounds 15 ounces with Apgars of 9 and 9. Time of delivery was 2320. Of note , there was a small left lower uterine segment extension of the incision. COMPLICATIONS: None. DESCRIPTION OF PROCEDURE: The risks, benefits, and alternatives were described to the patient and informed consent was obtained. The patient was taken to the operating room with IV running where epidural anesthesia was induced and found to be adequate. The patient was prepped and draped in the normal sterile fashion in the dorsal supine position with leftward tilt. A Pfannenstiel skin incision was made with a scalpel and this was carried down to the underlying fascia sharply. The fascia was then scored in the midline with the scalpel. The incision was extended using Javed scissors. The rectus muscles were dissected off the rectus fascia using blunt and sharp dissection. The rectus muscles were in the midline bluntly. The peritoneum was also entered bluntly. A bladder blade was placed. A bladder flap was created sharply using Metzenbaum scissors. A low transverse uterine incision was made with the scalpel. This was carried down to the amniotic cavity which was productive of clear fluid. The incision was extended with blunt traction. The head was elevated to the level of the incision without difficulty and delivered through the incision. With fundal pressure, the shoulders and body delivered without difficulty. The had an excellent tone and cried immediately on delivery. The cord was doubly clamped and cut. The infant was then handed to the awaiting port captain. Cord blood was collected. The placenta then delivered with manual extraction. The uterus was then exteriorized and cleared of all clots and debris. Uterine incision was reapproximated using 0 Polysorb in a running-locked fashion. A second layer of imbricating sutures of 0 Polysorb was also placed with good hemostasis. The posterior cul-de-sac was irrigated with saline. The uterus was then returned to the abdomen, and the incision was reinspected and noted to be hemostatic. The peritoneum was closed with 2-0 chromic in a running fashion. The fascia was closed with 0 Polysorb in a running fashion. Subcutaneous tissues were reapproximated using 2-0 chromic and interrupted sutures. The skin was then closed with 4-0 Monocryl in a subcuticular stitch. Mastisol and Steri-Strips were placed over the incision which was then covered with a sterile bandage. The patient tolerated the procedure well. Sponge, lap, and needle counts were correct x2. [id number]/[facility] #: [id number] [facility]
[2019-06-13 06:32] LABS: ABS Lymphocytes 0.7 10^3/ul (1.0-4.8); ABS Monocytes 0.3 10^3/ul (0-0.8); ABS Neutrophils 12.4 10^3/ul (1.5-7.7); Hematocrit 24 % (35-47); Hemoglobin 8.2 g/dL (12.0-16.0); Lymphocyte % 5.1 %; Mean Corpuscular HGB Conc 34 g/dL (31-36); Mean Corpuscular Hemoglobin 28 pg (27-31); Mean Corpuscular Volume 82 fL (80-97); Platelet Count 111 10^3/uL (150-450); Red Blood Count 2.96 10^6 /uL (3.70-4.87); Red Cell Distribution Width 15 % (10-15); White Blood Count 13.4 10^3/uL (3.5-10.8)
[2019-06-13] MEDS: Acetaminophen TAB* 325 MG PO SCH (08:41)
[2019-06-13] MEDS: Simethicone TAB* 80 MG TAB.CHEW PO SCH ×3 (08:42→18:31)
[2019-06-13] MEDS: Docusate CAP* 100 MG PO SCH ×3 (08:42→20:45)
[2019-06-13] MEDS ORDERED: Tetan/Diph/Pertus SYR(Tdap)* 0.5 ML SYR(BOOSTRIX) use SYR contains LATEX IM ONE (09:00)
[2019-06-13] MEDS ORDERED: Ferrous Sulfate TAB* 325 MG ONE (10:28)
[2019-06-13] MEDS ORDERED: oxyCODONE TAB* 5 MG TAB PO PRN (16:00)
[2019-06-13] MEDS: Ferrous Gluconate TAB* 324 MG TAB PO SCH (20:45)
[2019-06-14] MEDS ORDERED: Acetaminophen TAB* 325 MG PO PRN
[2019-06-14] MEDS: Ibuprofen TAB* 600 MG PO SCH ×4 (01:31→21:05)
[2019-06-14] MEDS: Docusate CAP* 100 MG PO SCH ×3 (08:47→21:06)
[2019-06-14] MEDS: Ferrous Gluconate TAB* 324 MG TAB PO SCH ×2 (08:47→21:09)
[2019-06-14] MEDS: oxyCODONE TAB* 5 MG TAB PO PRN ×2 (08:47→14:06)
[2019-06-14] MEDS: Simethicone TAB* 80 MG TAB.CHEW PO SCH ×4 (08:48→20:00)
[2019-06-14] MEDS: Acetaminophen TAB* 325 MG PO SCH ×2 (09:16→10:59)
[2019-06-14] MEDS: Ketorolac INJ* 30 MG/ML 1 ML VIAL IV SCH (09:18)
--- NOTE | 2019-06-14 11:23 | PTEDU ---
Patient Name: RANDOLPH SANCHEZ RANDOLPH SANCHEZ selected video: BBOB: Nurturing Your Gorgeous &Growing Baby by Breast feeding to view on 06/14/2019 at 11:23:28 AM from [id number]
[2019-06-15] MEDS: Ibuprofen TAB* 600 MG PO SCH ×3 (06:40→12:29)
[2019-06-15] MEDS: Penicillin G Potassium IV* 3,000,000 UNITS in NS 0.9% 100 ML* 100 ML IVPB SCH (07:16)
[2019-06-15] MEDS: OBEPIDURAL* 250 ML EPIDURAL SCH (07:16)
[2019-06-15] MEDS: Simethicone TAB* 80 MG TAB.CHEW PO SCH ×3 (07:17→12:29)
[2019-06-15 08:05] VITALS: BP 109/67
[2019-06-15] MEDS: Docusate CAP* 100 MG PO SCH (08:39)
[2019-06-15] MEDS: Ferrous Gluconate TAB* 324 MG TAB PO SCH (08:39)
[2019-06-15] MEDS ORDERED: Varicella Virus Vaccine Live* 0.5 ML VIAL SUBCUT ONE (13:45)
== END 2019-06-15 13:45 | disposition home or self-care (01) | DRG 540 ==
LOC: MCHOBOUT 07:57 → MCHOB 08:32
PROVIDERS: ADMIT Midwife; ATTEND Midwife
PROC: 3E033VJ Introduction of Other Hormone into Peripheral Vein, Percutaneous Approach (ICD-10-PCS; 2019-06-12)
PROC: 3E0P7VZ Introduction of Hormone into Female Reproductive, Via Natural or Artificial Opening (ICD-10-PCS; 2019-06-12)
PROC: 0U7C7ZZ Dilation of Cervix, Via Natural or Artificial Opening (ICD-10-PCS; 2019-06-12)
PROC: 10D00Z1 Extraction of Products of Conception, Low, Open Approach (ICD-10-PCS; principal; 2019-06-12 22:58)
DX: O48.0 Post-term pregnancy (principal); O62.0 Primary inadequate contractions; O99.824 Streptococcus B carrier state complicating childbirth; O69.81X0 Labor and delivery complicated by cord around neck, without compression, not applicable or unspecified; O90.81 Anemia of the puerperium; D64.9 Anemia, unspecified; Z3A.41 41 weeks gestation of pregnancy; Z37.0 Single live birth
CPT/HCPCS: 36415; 80307; 85025; 86850; 86900; 86901; A9270-GY; G0480; J0694; J1100; J1885; J2270; J2400; J2405; J2540; J2550; J2590; J3010

== ENCOUNTER 2020-12-02 06:01 | Inpatient (IN) ==
[~2020-12-02 06:01] MED LIST: Buffered Lidocaine 1% SYRIN 1 ml INTRADERM ONE; Lactated Ringers 1000 ml BAG 1,000 ML IV SCH; Sodium Citrate/Citric Acid LIQ 15 ML UDC PO ONE
[2020-12-02] MEDS ORDERED: ceFOXitin 2 GM PREMIX 50 ML IVPB ONE (06:15)
[2020-12-02] MEDS ORDERED: Lactated Ringers 1000 ml BAG 1,000 ML IV ONE (07:32)
[2020-12-02] MEDS ORDERED: Buffered Lidocaine 1% SYRIN 1 ml INTRADERM ONE (07:32)
[2020-12-02] MEDS ORDERED: Morphine PF AMP (0.5MG/ML) 5 MG/10 ML AMP ONE (07:40)
[2020-12-02] MEDS ORDERED: Dexamethasone IV 4 MG/ML VIAL 1 ml VIAL ONE (07:41)
[2020-12-02] MEDS ORDERED: Oxytocin 10 UNITS/ML 1 ML VIAL ONE (07:41)
[2020-12-02] MEDS ORDERED: Ondansetron 4 mg VIAL 2 MG/ML 2 ml VIAL ONE (07:41)
[2020-12-02 07:52] LABS: Rapid COVID-19 Molecular Undetected (Undetected)
[2020-12-02] MEDS ORDERED: Lactated Ringers 1000 ml BAG 1,000 ML IV SCH ×2 (08:00→11:00)
[2020-12-02] MEDS ORDERED: EPHEDrine (Pressors) 50 MG/ML VIAL ONE (08:39)
[2020-12-02] MEDS ORDERED: fentaNYL 100 mcg/2 ml 50 MCG/ML VIAL ONE (09:00)
[2020-12-02] MEDS ORDERED: Acetaminophen IV 1 GM/100ML 100 ML IV ONE (09:03)
[2020-12-02] MEDS ORDERED: fentaNYL 100 mcg/2 ml 50 MCG/ML VIAL IV PRN (09:03)
[2020-12-02] MEDS ORDERED: DiMENhydriNATE IV 50 mg/ml 1 ml VIAL IV PUSH PRN (09:03)
[2020-12-02] MEDS ORDERED: Naloxone 0.4 mg VIAL 0.4 mg/ml 1 ml VIAL IV PRN ×2 (09:03→09:06)
[2020-12-02] MEDS ORDERED: Prochlorperazine 5 mg/ml 2 ml VIAL (10 mg) IV PRN ×2 (09:03→09:06)
[2020-12-02] MEDS ORDERED: Ondansetron 4 mg VIAL 2 MG/ML 2 ml VIAL IV PRN (09:06)
[2020-12-02] MEDS ORDERED: diPHENhydraMINE IV 50 MG/ML 1 ml VIAL (BENADRYL) IV PRN (09:06)
[2020-12-02 09:21] LABS: Urine Appearance Clear; Urine Bilirubin Negative (Negative); Urine Blood Negative (Negative); Urine Color Colorless; Urine Glucose Negative (Negative); Urine Ketones Negative (Negative); Urine Nitrite Negative (Negative); Urine Protein Negative (Negative); Urine Specific Gravity 1.003 (1.002-1.030); Urine Urobilinogen Negative (Negative)
[2020-12-02 09:49] LABS: Urine Benzodiazepine Screen None Detected (None Detect); Urine Cannabinoids Screen None Detected (None Detect); Urine Opiates Screen None Detected (None Detect)
[2020-12-02] MEDS ORDERED: Dibucaine 1% OINT 28.35 GM TUBE PR PRN (10:26)
[2020-12-02] MEDS ORDERED: Glycerin ADULT 2.4 gm SUPP PR PRN (10:26)
[2020-12-02] MEDS ORDERED: witch hazeL 43% TOP.SOLN 200 ML PHA COMPOUND TOPICAL PRN (10:40)
[2020-12-02] MEDS ORDERED: Oxytocin in LR 20 UNITS/1,000 ML BAG IVPB SCH (11:00)
[2020-12-03 06:32] LABS: ABS Lymphocytes 1.6 10^3/ul (1.0-4.8); ABS Monocytes 0.5 10^3/ul (0-0.8); ABS Neutrophils 5.8 10^3/ul (1.5-7.7); Eosinophil % 0.5 %; Hematocrit 28 % (35-47); Hemoglobin 9.5 g/dL (12.0-16.0); Lymphocyte % 20.7 %; Mean Corpuscular HGB Conc 34 g/dL (31-36); Mean Corpuscular Hemoglobin 27 pg (27-31); Mean Corpuscular Volume 79 fL (80-97); Platelet Count 144 10^3/uL (150-450); Red Blood Count 3.59 10^6 /uL (3.70-4.87); Red Cell Distribution Width 17 % (10-15)
[2020-12-03] MEDS ORDERED: Flu vaccine *QUAD* 2021-22* 0.5 ML SYRINGE IM ONE (09:00)
[2020-12-04 07:53] VITALS: BP 93/49
[2020-12-05] MEDS ORDERED: Scopolamine PATCH Remove NOTE PATCH OFF PRN (09:06)
== END 2020-12-04 11:44 | disposition home or self-care (01) | DRG 540 ==
LOC: MCHOB 06:01
PROVIDERS: ADMIT Obstetrics & Gynecology; ATTEND Obstetrics & Gynecology